=== PATIENT | male | born 1970 | race Caucasian/White ===

== ENCOUNTER → 2018-05-09 | Outpatient (CLI) | payer BC ==
--- NOTE | 2018-05-10 14:54 | EST ---
EXERCISE STRESS AGE: 47 SEX: M HT: 71 WT: 188 PROTOCOL: Burt Stress Test STAGE: 4 DURATION OF EXERCISE: 10:30 HEART RATE REST: 63 BLOOD PRESSURE REST: 120/80 MAXIMUM HEART RATE ACHIEVED: 142 MAXIMUM BLOOD PRESSURE: 152/77 85% MPHR: 145 100% MPHR: 171 METS: 12.1 INDICATIONS: Chest pain. CLINICAL INFORMATION: Patient was exercised for a total period of 10 minutes and 30 seconds. Peak heart rate of 142 was achieved, maximum blood pressure of 152/77 mmHg was noted. Resting EKG shows normal sinus rhythm with normal [place] interval and QRS duration and normal ST-T waves. No ST-segment depression suggestive of ischemia is noted. Patient did not complain of any chest pain during the test. FINAL IMPRESSION: 1. This exercise test is not suggestive of ischemia. 2. Patient's exercise tolerance is normal. 3. No dysrhythmias are noted. MMODL / IJN: [id number] /
== END | disposition home or self-care (01) ==
LOC: RADNMMAIN 08:41
PROVIDERS: ATTEND Family Medicine
DX: R07.89 Other chest pain (principal); I10 Essential (primary) hypertension; E78.2 Mixed hyperlipidemia
CPT/HCPCS: 93017